=== PATIENT | male | born 1935 | race Caucasian/White ===

== ENCOUNTER → 2016-08-15 | Day surgery (SDC) | payer OTHER ==
[~2016-08-15] VITALS: Ht 172.7 cm; Wt 65.9 kg
[~2016-08-15] MED LIST: ACETAMINOPHEN 1000 MG/100 ML VIAL IV ONE; ACETAMINOPHEN/HYDROcodone 325 MG/7.5 MG TAB PO PRN; BETAMETHASONE SOD PHOS/ACETATE SUSP 30 MG/5 ML VIAL ONE; BILB40CA PO; BUPIVACAINE/EPINEPHRINE 0.25% 50 ML VIAL ONE; BUPIVACAINE/EPINEPHRINE 0.25% PF 30 ML VIAL ONE; CHLORHEXIDINE GLUCONATE 2 % 1 PACK (2 CLOTHS) TOPICAL PRN; DO NOT ADM ANY ANTICOAGULANT DRUGS PRN; GELATIN 12 MM/7 MM FOAM ONE; GENTAMICIN SULFATE 80 MG/2 ML VIAL ONE; HYDR-3288 PO; HYDR-3516 PO; INSULIN HUMAN REGULAR 1,000 UNITS/10 ML VIAL SQ PRN; KETOROLAC TROMETHAMINE 60 MG/2 ML (IM) VIAL IM ONE; LACTATED RINGER'S 1000 ML INJ 1,000 ML IV ONE; LACTATED RINGER'S 1000 ML IV PRN; LOSA100T PO; LOVA20TA PO; METOPROLOL TARTRATE 25 MG TAB PO PRN; MISCCAP32 PO; MORPHINE SULFATE 4 MG/ML INJ IV PUSH PRN; MULTTAB PO; ONDANSETRON HCL 4 MG/2 ML VIAL IV PUSH ONE; PHENYLEPH/NS 1000 MCG/10 ML SYR IV ONE; POVIDONE IODINE 5% (ANTISEPSIS KIT) 4 APPLICATIONS EACH NARE PRN; POVIDONE IODINE 7.5% SCRUB 118 ML BOTTLE TOPICAL SCH; PROPOFOL 200 MG/20 ML AMP IV ONE; SODIUM CHLORID 0.9% 500 ML IV PRN; SODIUM CHLORIDE 10 ML FLUSH BID IV FLUSH SCH; SODIUM CHLORIDE 10 ML FLUSH PRN IV FLUSH; ceFAZolin 2 GM PREMIX 50 ML IV SCH; ePHEDrine/NS 25 MG/5 ML SYR IV ONE; fentaNYL CITRATE 250 MCG/5 ML AMP ONE
--- NOTE | 2016-08-15 09:22 | MH ---
cc: NAEEM GOMEZ DATE OF ADMISSION 08/15/2016 ADMISSION DIAGNOSIS Lumbar spinal stenosis. HISTORY OF THE PRESENT ILLNESS This is an 80-year-old white male who has been treated by Dr. Haroldo Leija. The patient developed significant onset of back pain and weakness into the legs in March 2016. He was seen by his primary care physician and placed on pain medications. He was treated with Dr. Jozef Leija. Investigative studies shows evidence of significant spinal stenosis L4-5 level associated with a disk herniation. Despite conservative care the patient is developing progressive weakness and now presents for surgical treatment. PAST MEDICAL HISTORY, SOCIAL HISTORY, FAMILY HISTORY, REVIEW OF SYMPTOMS See attached notes. PHYSICAL EXAMINATION VITAL SIGNS: 5 feet 7, 142 pounds, BMI of 23.6. Blood pressure 124/76. HEENT: Normocephalic, atraumatic. Pupils equal, round, reactive to light and accommodation. Extraocular motions intact. NECK: Supple. CHEST: Clear. HEART: Regular rate and rhythm. ABDOMEN: Soft, nontender. Normoactive bowel sounds. MUSCULOSKELETAL: The patient's thoracolumbar spine restricted motion, pain with range of motion. Motor examination shows weakness of the right extensor hallicis longus 4+/5, left EHL 4+/5, bilateral gastroc-soleus 4/5. Sensation is decreased on the right and predominately the S1 distribution. Ynwubwsc-mrq-osdko is positive on the right and negative on the left. IMAGING MRI scan lumbar spine shows evidence of severe spinal stenosis L4-5 associated with a large central and slightly right-sided disk herniation and evidence of significant hypertrophy of the ligaments across that region. This contributes to severe spinal stenosis. IMPRESSION 1. Lumbar spinal stenosis L4-5. 2. Herniated nucleus pulposus L4-5. PLAN Bilateral laminectomy L4-L5 from the right, bilateral lateral recess decompression, resection herniated nucleus pulposus, use of dilation port and microscope. CONSENT There are risks with surgery including infection, bleeding, loss of motion, continued pain, need for further surgery, neurologic and vascular injury. The patient understands and wishes to press on with surgery as outlined above. MD SUE Woods/OLIVA /6:03 PM 9:17 AM
--- NOTE | 2016-08-15 12:06 | PD.OP ---
cc: Edy Parra. Operative Report Date of Surgery: August 15, 2016 Preoperative Diagnosis: Lumbar spinal stenosis, L4 5, severe. Herniated nucleus pulposus L4 5 central, extruded, large. Bilateral lumbosacral radiculopathy, right greater than left Postoperative Diagnosis: Same Procedure: Bilateral lumbar laminectomy from the right L4, L5 with bilateral lateral recess decompression. Resection sequestered herniated nucleus pulposus, L4 5. Use of dilation port and microscope Anesthesia: Gen. Surgeon: Edy Parra Fresh [employer] Manager(s): DAYDAY Kumari Operation and Findings: EBL: 50 cc INDICATION: Patient is an 80-year-old male with severe weakness into his legs related to severe spinal stenosis at L4 5 and a central large extruded disc herniation. He presents for surgical treatment. NOTE: Jessica Kumari PA-C was present for the entire surgical procedure as my customer support assistant. In my medical opinion her skill and care was necessary for the proper management of this patient. PROCEDURE: The patient was brought to the operating room and anesthetized in the supine position. The patient was rolled to a prone position on a Kal frame on a Nixon table. All pressure points were protected in the back was scrubbed with alcohol followed by Hibiclens followed by ChloraPrep and draped sterilely. A timeout was done and antibiotics were given. AP and lateral radiographic images were used to identify the proper levels and perform skin markings. We started from the right side at the L4 5 level. A paramedian incision was made and an off-midline fascial incision was made. A dilating system was placed down to the interlaminar space and held provisionally to the side of the table. The microscope was brought into the field. A high-speed bur under the microscope was used to perform a bilateral laminectomy from that side. A lateral recess decompression bilaterally was accomplished using straight and angled Kerrison punches. A partial medial facetectomy was accomplished. The crossing and exiting nerve roots were completely decompressed. There was evidence of a large disc herniation. The crossing L5 nerve root was brought into a medial position and held carefully with a nerve root retractor. A pseudo -annulus was found which was opened allowing removal of multiple fragments of degenerative disc herniation. Extending into the disc space we could not find any additional disc fragments. The wound was irrigated copiously. A small piece of Gelfoam with Celestone was placed into the epidural space. Hemostasis was controlled. The deep fascia was approximated with interrupted 0 Vicryl suture subcutaneous suture with 2-0 Vicryl suture and skin with running intradermal 3-0 Vicryl followed by Dermabond. A field block with local anesthesia was utilized. A sterile dressing was applied. The sponge count and needle counts and instrument counts were all correct. The patient tolerated the procedure well as taken to the recovery room in satisfactory condition. FINDINGS: There was evidence of a large sequestered disc herniation centrally. This is approached from around the lateral recess on the right side and underneath the crossing L5 nerve root. This came out in multiple degenerative fragments. Edy Parra MD August 15, 2016 12:06
--- NOTE | 2016-08-15 13:59 | RADRPT ---
EXAM DATE/TIME: 08/15/2016 10:53 [facility] COMPARISON: No previous studies available for comparison. INDICATIONS : L4-5 laminectomy. MEDICAL HISTORY : None. SURGICAL HISTORY : None. ENCOUNTER: Initial ACUITY: 1 day PAIN SCORE: Non-responsive. LOCATION: L-spine. FINDINGS: A single magnified C-arm spot views a lateral projection of the lower lumbar spine at the lumbosacral junction. Dorsal skin retractors overlie the posterior elements at L4-L5. CONCLUSION: Limited image as detailed above. Roberth Jefferson Jr., MD on August 15, 2016 at 13:57 Board Certified Radiologist. This report was verified electronically.
[2016-08-15 14:00] VITALS: BP 148/76; PULSE 78; RESP 16; TEMP 97.6; O2SAT 94
== END | disposition home or self-care (01) ==
LOC: HSDC 06:48
PROVIDERS: ATTEND Orthopaedic Surgery Orthopaedic Surgery of the Spine
DX: M48.06 Spinal stenosis, lumbar region (principal); M51.26 Other intervertebral disc displacement, lumbar region
CPT/HCPCS: 00630; 63030; 72020; 76000; J0131; J0690; J0702; J1580; J1885; J2370; J2405; J3010; J7120